=== PATIENT | male | born 1940 | race Caucasian/White ===

== ENCOUNTER 2024-06-27 12:24 | Outpatient (CLI) | payer MEDICARE, OTHER | END 2024-06-27 12:25 | disposition home or self-care (01) | LOC: CSHRAD 12:24 | PROVIDERS: ATTEND Otolaryngology Plastic Surgery within the Head & Neck | DX: R13.10 Dysphagia, unspecified (principal) | CPT/HCPCS: 74220 ==

== ENCOUNTER 2025-01-17 11:09 | Outpatient (CLI) | payer MEDICARE, OTHER ==
[2025-01-17 13:59] LABS: Estimated GFR - POC 54.0
== END 2025-01-17 11:10 | disposition home or self-care (01) ==
LOC: CSHCT 11:09
PROVIDERS: ATTEND Family Medicine
DX: K11.20 Sialoadenitis, unspecified (principal); K11.8 Other diseases of salivary glands
CPT/HCPCS: 70487; 82565

== ENCOUNTER 2025-02-28 10:59 | Outpatient (CLI) | payer MEDICARE, OTHER | END 2025-02-28 11:00 | disposition home or self-care (01) | LOC: CSHULT 10:59 | PROVIDERS: ATTEND Otolaryngology Plastic Surgery within the Head & Neck | DX: D49.0 Neoplasm of unspecified behavior of digestive system (principal) | CPT/HCPCS: 76536 ==